=== PATIENT | female | born 1975 | race Caucasian/White ===

== ENCOUNTER → 2018-07-11 | Outpatient (CLI) | payer BC ==
[~2018-07-11] MED LIST: BENZ100A PO; CIPRSO BOTHEYES; Prednisone20 MG PO; TOBR.3OPSO BOTHEYES; TOBR.3OPSO LEFTEYE; Zithromax250 MG PO; [UNRECOGNIZED DRUG - CODE] BOTHEYES
[2018-07-13 15:08] LABS: HPV 16 Negative (Negative); HPV 18 Negative (Negative); HPV OTHER HR TYPES Negative (Negative)
== END | disposition home or self-care (01) ==
LOC: LAB SHORT 17:58 → LAB 17:58
PROVIDERS: Obstetrics & Gynecology
DX: Z01.419 Encounter for gynecological examination (general) (routine) without abnormal findings (principal)
CPT/HCPCS: 87624; G0123

== ENCOUNTER → 2018-11-18 | Outpatient (CLI) | payer BC | END | disposition home or self-care (01) | LOC: LAB 18:02 → LAB SHORT 18:02 | DX: L08.9 Local infection of the skin and subcutaneous tissue, unspecified (principal); L53.8 Other specified erythematous conditions; L82.0 Inflamed seborrheic keratosis; B07.8 Other viral warts; R20.8 Other disturbances of skin sensation; L73.2 Hidradenitis suppurativa | CPT/HCPCS: 87070; 87077; 87186 ==

== ENCOUNTER → 2018-12-02 | Outpatient (CLI) | payer BC | END | disposition home or self-care (01) | LOC: LAB SHORT 13:06 → PLD 13:06 | DX: N92.0 Excessive and frequent menstruation with regular cycle (principal) | CPT/HCPCS: 88305 ==

== ENCOUNTER 2019-01-03 06:56 | Day surgery (SDC) | payer BC ==
[~2019-01-03] VITALS: Ht 162.6 cm; Wt 120.7 kg
== END 2019-01-03 09:46 | disposition home or self-care (01) ==
LOC: ORSCSDS 06:56
PROVIDERS: Internal Medicine Gastroenterology
PROC: 0DBP8ZX Excision of Rectum, Via Natural or Artificial Opening Endoscopic, Diagnostic (ICD-10-PCS; principal; 2019-01-03 08:45)
DX: K92.1 Melena (principal); K62.6 Ulcer of anus and rectum; K64.4 Residual hemorrhoidal skin tags; R19.4 Change in bowel habit; K64.8 Other hemorrhoids; G47.33 Obstructive sleep apnea (adult) (pediatric); E66.01 Morbid (severe) obesity due to excess calories; Z68.42 Body mass index [BMI] 45.0-49.9, adult
CPT/HCPCS: 88305; J7120

== ENCOUNTER → 2020-03-26 | Outpatient (CLI) | payer BC ==
[2020-03-28 15:07] LABS: HPV 16 Negative (Negative); HPV 18 Negative (Negative); HPV OTHER HR TYPES Negative (Negative)
== END | disposition home or self-care (01) ==
LOC: EDSTATUS 08:27 → LAB 09:38 → LAB SHORT 09:38
PROVIDERS: Obstetrics & Gynecology
DX: Z01.419 Encounter for gynecological examination (general) (routine) without abnormal findings (principal)
CPT/HCPCS: 87624; G0123

== ENCOUNTER → 2020-07-11 | Outpatient (CLI) | payer BC ==
[~2020-07-11] MED LIST changes: +HYDR1TAB94 PO; +MIRALAX17 GM PO; +SULFAMETHOXAZO1 EAC1 PO
== END | disposition home or self-care (01) ==
LOC: LAB 18:10 → LAB SHORT 18:10
DX: R30.0 Dysuria (principal)
CPT/HCPCS: 87077; 87086; 87147; 87186

== ENCOUNTER → 2020-08-13 | Outpatient (CLI) | payer BC | END | disposition home or self-care (01) | LOC: PLD 08:21 → LAB SHORT 08:21 | DX: N92.0 Excessive and frequent menstruation with regular cycle (principal) | CPT/HCPCS: 88305 ==